=== PATIENT | female | born 1995 | race African-American/Black ===

== ENCOUNTER 2024-11-03 01:03 | Emergency (ER) | payer SELFPAY ==
[~2024-11-03] VITALS: Ht 165.1 cm; Wt 73.0 kg
[2024-11-03 01:06] VITALS: BP 129/92; PULSE 88; RESP 18; TEMP 36.6; O2SAT 100
[2024-11-03] MEDS: ONDANSETRON 4MG ODT PO ONE (04:45)
[2024-11-03] MEDS: ONDANSETRON 4MG ODT PO NR (05:30)
[2024-11-03] MEDS ORDERED: ONDA-239 PO (05:36)
== END 2024-11-03 05:46 | disposition home or self-care (01) ==
LOC: ER 01:03
DX: F41.9 Anxiety disorder, unspecified (principal); R11.0 Nausea; Z88.6 Allergy status to analgesic agent
CPT/HCPCS: 99283; Q0162